=== PATIENT | female | born 1955 | race Caucasian/White ===

== ENCOUNTER 2020-12-17 17:52 | Emergency (ER) | payer MEDICARE, OTHER ==
[~2020-12-17] VITALS: Ht 170.2 cm; Wt 127.0 kg
[~2020-12-17 17:52] MED LIST: BAYER PLUS 500500 MG PO; BENTYL20 MG PO; CARAFATE1 GM; CARVEDILOL3.125 MG PO; CLONIDINE HCL0.1 MG PO; COZAAR50 MG PO; DICYCLOMINE HCL20 MG PO; HYDROCHLOROTHIA25 MG PO; MELOXICAM7.5 MG PO; METOPROLOL TART25 MG PO; MILK THISTLE140 M1 PO; NORCO 5-325 TA1 EACH PO; PRILOSEC20 MG PO; ULTRAM50 MG; ZOFRAN ODT4 MG PO
[2020-12-17] MEDS ORDERED: CEFTRIAXONE 1 GM in SODIUM CHLORIDE 0.9% 50ML 50 ML IV ONE (18:30)
[2020-12-17] MEDS ORDERED: DEXAMETHASONE SOD PHOS 10 MG/1 ML VIAL IV ONE (18:30)
[2020-12-17] MEDS ORDERED: DECADRON4 M1 PO (19:05)
[2020-12-17] MEDS ORDERED: AZITHROMYCIN250 MG PO (19:06)
[2020-12-17 19:46] LABS: BASOPHILS % 0.2 % (0.0-1.0); HEMATOCRIT 43.9 % (34.2-44.1); HEMOGLOBIN 14.9 g/dL (12.0-16.0); LYMPHOCYTES # (AUTO) 0.6 (1.0-3.2); LYMPHOCYTES % 10.6 % (18.0-39.1); MEAN CORPUSCULAR HGB CONC 33.9 g/dL (31-35); MEAN CORPUSCULAR VOLUME 85.6 fL (81-99); MONOCYTES # (AUTO) 0.3 (0.2-0.8); MONOCYTES % 4.5 % (4.4-11.3); NEUTROPHILS # (AUTO) 4.7 (2.1-6.9); NEUTROPHILS % 84.2 % (38.7-80.0); PLATELET COUNT 170 x10e3/uL (140-360); RED BLOOD COUNT 5.13 x10e6/uL (3.6-5.1); RED CELL DISTRIBUTION WIDTH 13.6 % (11.7-14.4)
[2020-12-17 20:06] LABS: ALANINE AMINOTRANSFERASE 30 IU/L (0-55); ALBUMIN 3.2 g/dL (3.5-5.0); ALBUMIN/GLOBULIN RATIO 0.8 (0.8-2.0); ALKALINE PHOSPHATASE 75 IU/L (40-150); ANION GAP 16.6 mmol/L (8-16); BLOOD UREA NITROGEN 18 mg/dL (7-26); BUN/CREATININE RATIO 20 (6-25); CALCIUM 8.4 mg/dL (8.4-10.2); CARBON DIOXIDE 23 mmol/L (22-29); CHLORIDE 98 mmol/L (98-107); CREATINE KINASE 18 IU/L (29-168); CREATININE, SERUM 0.92 mg/dL (0.57-1.11); EST GLOMERULAR FILTRATION RATE > 60 ML/MIN (60-); GLUCOSE 179 mg/dL (74-118); POTASSIUM 3.6 mmol/L (3.5-5.1); SODIUM 134 mmol/L (136-145)
== END 2020-12-18 00:30 | disposition other institution (70) ==
LOC: ER 18:19
DX: R06.02 Shortness of breath (principal); U07.1 COVID-19; K21.9 Gastro-esophageal reflux disease without esophagitis; Z86.79 Personal history of other diseases of the circulatory system
CPT/HCPCS: 36415; 71045; 80053; 82550; 82553; 84484; 85025; 93005; 99284; J0696; J1100; U0002

== ENCOUNTER → 2021-12-24 | Outpatient (CLI) | payer MEDICARE, OTHER ==
[~2021-12-24] MED LIST changes: +AZITHROMYCIN250 MG PO; +DECADRON4 M1 PO; +IOPAMIDOL 370 MG/ML 100 ML INFUS..BTL INJ ONE
[2021-12-24 14:26] LABS: CREATININE, SERUM 0.74 mg/dL (0.57-1.11)
== END ==
LOC: CT 13:21
PROVIDERS: ATTEND Internal Medicine
DX: R10.10 Upper abdominal pain, unspecified (principal); N28.89 Other specified disorders of kidney and ureter
CPT/HCPCS: 36415; 74177; 82565; 84520; Q9967

== ENCOUNTER → 2022-09-02 | Outpatient (CLI) | payer MEDICARE, OTHER ==
[~2022-09-02] MED LIST changes: -IOPAMIDOL 370 MG/ML 100 ML INFUS..BTL INJ ONE
== END ==
LOC: MAMMO 12:23
PROVIDERS: ATTEND Internal Medicine
DX: N63.24 Unspecified lump in the left breast, lower inner quadrant (principal); M81.8 Other osteoporosis without current pathological fracture
CPT/HCPCS: 77066; 77080

== ENCOUNTER → 2024-04-20 | Outpatient (REF) | payer MEDICARE, OTHER ==
[~2024-04-20] MED LIST changes: +IOPAMIDOL 370 MG/ML 100 ML INFUS..BTL INJ ONE; +SODIUM CHLORIDE 0.9% 100 ML ONE
[2024-04-20 09:49] LABS: CREATININE, SERUM 1.14 mg/dL (0.57-1.11)
== END ==
LOC: CT 08:53
PROVIDERS: ATTEND Internal Medicine
DX: I72.8 Aneurysm of other specified arteries (principal)
CPT/HCPCS: 36415; 74174; 82565; 84520; J7050; Q9967